=== PATIENT | male | born 1960 | race Caucasian/White ===

== ENCOUNTER 2017-02-08 19:27 | Emergency (ER) | payer OTHER ==
[~2017-02-08] VITALS: Ht 177.8 cm; Wt 164.7 kg
[2017-02-08] MEDS ORDERED: COREG25 MG PO (19:45)
[2017-02-08] MEDS ORDERED: IRBESARTAN75 MG PO (19:46)
[2017-02-08] MEDS ORDERED: NORVASC5 MG PO (19:46)
[2017-02-08] MEDS ORDERED: POTASSIUM20 PO (19:46)
[2017-02-08] MEDS ORDERED: PROZAC10 MG PO (19:47)
[2017-02-08] MEDS ORDERED: ALLOPURINOL 10100 M1 PO (19:47)
[2017-02-08] MEDS ORDERED: COUMADIN 5 MG TA5 M1 PO (19:47)
[2017-02-08 19:55] LABS: ABSOLUTE NEUTROPHILS 7.1 thou/uL (1.4-8.2); BASOPHILS 0.8 % (0.0-2.0); EOSINOPHILS 3.8 % (0.0-3.0); HEMATOCRIT 35.4 % (42.0-52.0); HEMOGLOBIN 11.7 gm/dL (14.0-18.0); LYMPHOCYTES 15.4 % (24.0-44.0); MCH 28.6 pg (26.0-34.0); MCV 86.6 fL (80.0-100.0); PLATELET COUNT 255 thou/uL (150-400); RBC 4.09 mil/uL (4.50-6.00); RDW 16.5 % (10.5-14.5)
[2017-02-08 20:04] LABS: MANUAL DIFF NO
[2017-02-08 20:08] LABS: CALCIUM 8.7 mg/dL (8.5-10.1); CREATININE 1.3 mg/dL (0.7-1.3); POTASSIUM 4.1 mmol/L (3.5-5.1)
[2017-02-08 20:12] LABS: ALBUMIN 3.4 g/dL (3.4-5.0); TOTAL BILIRUBIN 0.8 mg/dL (<0.1-1.0); TOTAL PROTEIN 7.4 g/dL (6.4-8.2)
[2017-02-08 20:25] LABS: PROTIME 103.6 Seconds (9.3-11.4)
[2017-02-08 21:04] VITALS: BP 153/75
== END 2017-02-08 21:04 | disposition home or self-care (01) ==
LOC: ER 19:27
PROVIDERS: Emergency Medicine
DX: R79.1 Abnormal coagulation profile (principal); I10 Essential (primary) hypertension; F32.9 Major depressive disorder, single episode, unspecified; F41.9 Anxiety disorder, unspecified; F10.99 Alcohol use, unspecified with unspecified alcohol-induced disorder; Z98.890 Other specified postprocedural states

== ENCOUNTER → 2020-03-12 | Outpatient (CLI) | payer BC ==
[~2020-03-12] MED LIST: ALLOPURINOL 10100 M1 PO; COREG25 MG PO; COUMADIN 5 MG TA5 M1 PO; IRBESARTAN75 MG PO; NORVASC5 MG PO; POTASSIUM20 PO; PROZAC10 MG PO
== END ==
LOC: SJCVCIMAG 08:30
PROVIDERS: ATTEND Internal Medicine Cardiovascular Disease
DX: I07.1 Rheumatic tricuspid insufficiency (principal); I77.810 Thoracic aortic ectasia; I48.91 Unspecified atrial fibrillation; I42.9 Cardiomyopathy, unspecified; Z95.4 Presence of other heart-valve replacement; Z98.890 Other specified postprocedural states